=== PATIENT | female | born 2000 | race Caucasian/White ===

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

== ENCOUNTER → 2021-01-04 | Outpatient (CLI) | payer OTHER ==
[~2021-01-04] MED LIST changes: +CEFD300 PO; +PRENATAL TABLE1 EAC2 PO
== END | disposition home or self-care (01) ==
LOC: LAB SHORT 14:45 → LAB 14:45
DX: J06.9 Acute upper respiratory infection, unspecified (principal)
CPT/HCPCS: 87081

== ENCOUNTER 2021-11-26 22:37 | Emergency (ER) | payer OTHER ==
[~2021-11-26] VITALS: Ht 175.3 cm; Wt 68.0 kg
[2021-11-26 23:25] LABS: BASOPHILS ABSOLUTE AUTO 0.04 K/mm3 (0.00-0.23); BASOPHILS PERCENT AUTO 1 % (0-2); EOSINOPHILS ABSOLUTE AUTO 0.09 K/mm3 (0.00-0.68); EOSINOPHILS PERCENT AUTO 2 % (0-6); Hematocrit 40.1 % (33.0-51.0); Hemoglobin 13.5 g/dL (11.5-16.0); IMMATURE GRAN ABSOLUTE AUTO 0.01 K/mm3 (0.00-0.10); IMMATURE GRAN PERCENT AUTO 0 % (0-1); LYMPHOCYTES ABSOLUTE AUTO 2.01 K/mm3 (0.84-5.20); LYMPHOCYTES PERCENT AUTO 33 % (21-46); MONOCYTES ABSOLUTE AUTO 0.46 K/mm3 (0.16-1.47); MONOCYTES PERCENT AUTO 8 % (4-13); Mean Corpuscular HGB 29.9 pg (26.0-34.0); Mean Corpuscular HGB Conc 33.7 g/dL (31.5-36.5); Mean Corpuscular Volume 89 fL (80-100); Mean Platelet Volume 9.2 fL (9.1-12.4); NEUTROPHILS ABSOLUTE AUTO 3.49 K/mm3 (1.96-9.15); NEUTROPHILS PERCENT AUTO 57 % (41-73); Platelet Count 279 K/mm3 (150-400); RDW Coefficient Variation 12.2 % (11.7-14.2); RDW Standard Deviation 40.1 fL (35.1-46.3); Red Blood Cell Count 4.51 M/mm3 (3.80-5.20)
[2021-11-26 23:44] LABS: Albumin, Blood 3.9 g/dL (3.4-5.0); Albumin/Globulin Ratio 1.1 (0.8-1.8); Bilirubin, Total 0.2 mg/dL (0.1-1.0); Calcium, Blood 9.3 mg/dL (8.5-10.1); Creatinine, Blood 0.76 mg/dL (0.40-1.00); Globulin, Blood 3.5 g/dL (2.2-4.0); Magnesium, Blood 1.7 mg/dL (1.6-2.4); Total Protein, Blood 7.4 g/dL (6.4-8.2)
[2021-11-26 23:49] LABS: Source, Urine Clean Catch
[2021-11-26 23:58] LABS: Bilirubin, Urine Neg (Neg); Blood, Urine 1+ (Neg); Glucose Qualitative, Urine Neg (Neg); Ketones, Urine Neg (Neg); Leukocyte Esterase, Urine 3+ (Neg); Nitrite, Urine Neg (Neg); Protein, Urine Neg (Neg); Urobilinogen, Urine NORM (Normal)
[2021-11-27 00:14] LABS: Appearance, Urine Hazy (Clear); Bacteria Many /hpf; Color, Urine Yellow (P-Yellow); Red Blood Cells, Urine 0-2 /hpf (0-2); Squamous Epithelial Cells Mod /hpf (Few)
[2021-11-27 00:16] LABS: U Amphetamine Screen Not Detected; U Barbituate Screen Not Detected; U Benzodiazapine Screen Not Detected; U Buprenorphine Screen Not Detected; U Cannabinoids Screen DETECTED; U Cocaine Screen Not Detected; U Methadone Screen Not Detected; U Methamphetamine Screen Not Detected; U Opiates Screen Not Detected; U Oxycodone Screen Not Detected; U Phencyclidine Screen Not Detected; U Propoxyphene Screen Not Detected
[2021-11-27] MEDS ORDERED: LEVE500 PO (01:00)
== END 2021-11-27 01:09 | disposition home or self-care (01) ==
LOC: ER 22:37
PROVIDERS: Physician Assistant
DX: R20.2 Paresthesia of skin (principal); R10.9 Unspecified abdominal pain; Z79.899 Other long term (current) drug therapy
CPT/HCPCS: 36415; 80053; 81001; 81025; 82947; 83735; 85025; 87086; 99284

== ENCOUNTER → 2022-08-21 | Outpatient (CLI) | payer OTHER ==
[~2022-08-21] MED LIST changes: +LEVE500 PO
[2022-08-22 13:00] LABS: Candida species (DNA Probe) Negative (NEGATIVE); G. vaginalis (DNA Probe) Negative (NEGATIVE); T. vaginalis (DNA Probe) Negative (NEGATIVE)
== END | disposition home or self-care (01) ==
LOC: LAB SHORT 16:57 → LAB 16:57
PROVIDERS: Obstetrics & Gynecology
DX: N89.8 Other specified noninflammatory disorders of vagina (principal)
CPT/HCPCS: 87480; 87510; 87660

== ENCOUNTER → 2022-10-01 | Outpatient (CLI) | payer OTHER ==
[2022-10-01 13:20] LABS: Source, Urine Clean Catch
[2022-10-01 14:24] LABS: Appearance, Urine Clear (Clear); Bilirubin, Urine Neg (Neg); Blood, Urine Neg (Neg); Color, Urine Yellow (P-Yellow); Glucose Qualitative, Urine Neg (Neg); Ketones, Urine Neg (Neg); Leukocyte Esterase, Urine Neg (Neg); Nitrite, Urine Neg (Neg); Protein, Urine Neg (Neg); Urobilinogen, Urine NORM (Normal)
== END | disposition home or self-care (01) ==
LOC: LAB SHORT 13:14 → LAB 13:14
PROVIDERS: Obstetrics & Gynecology
DX: R30.0 Dysuria (principal); R10.2 Pelvic and perineal pain
CPT/HCPCS: 81003

== ENCOUNTER 2022-10-11 21:00 | Emergency (ER) | payer OTHER ==
[~2022-10-11] VITALS: Ht 175.3 cm; Wt 68.5 kg
[2022-10-11 21:34] LABS: BASOPHILS ABSOLUTE AUTO 0.05 K/mm3 (0.00-0.23); BASOPHILS PERCENT AUTO 1 % (0-2); EOSINOPHILS ABSOLUTE AUTO 0.11 K/mm3 (0.00-0.68); EOSINOPHILS PERCENT AUTO 2 % (0-6); Hematocrit 39.2 % (33.0-51.0); IMMATURE GRAN ABSOLUTE AUTO 0.02 K/mm3 (0.00-0.10); IMMATURE GRAN PERCENT AUTO 0 % (0-1); LYMPHOCYTES ABSOLUTE AUTO 2.31 K/mm3 (0.84-5.20); LYMPHOCYTES PERCENT AUTO 35 % (21-46); MONOCYTES PERCENT AUTO 8 % (4-13); Mean Corpuscular HGB 29.9 pg (26.0-34.0); Mean Corpuscular HGB Conc 33.2 g/dL (31.5-36.5); Mean Corpuscular Volume 90 fL (80-100); Mean Platelet Volume 9.4 fL (9.1-12.4); NEUTROPHILS ABSOLUTE AUTO 3.54 K/mm3 (1.96-9.15); NEUTROPHILS PERCENT AUTO 54 % (41-73); Platelet Count 284 K/mm3 (150-400); RDW Standard Deviation 42.9 fL (35.1-46.3); Red Blood Cell Count 4.35 M/mm3 (3.80-5.20); White Blood Cell Count 6.53 K/mm3 (4.00-11.30)
[2022-10-11 21:54] LABS: Albumin, Blood 3.9 g/dL (3.4-5.0); Albumin/Globulin Ratio 1.2 (0.8-1.8); Bilirubin, Total 0.3 mg/dL (0.1-1.0); Bun/Creatinine Ratio 15.3 (12.0-20.0); Calcium, Blood 9.5 mg/dL (8.5-10.1); Creatinine, Blood 0.72 mg/dL (0.40-1.00); Globulin, Blood 3.3 g/dL (2.2-4.0); Potassium, Blood 3.8 mmol/L (3.5-5.5); Total Protein, Blood 7.2 g/dL (6.4-8.2)
[2022-10-11 23:00] LABS: Source, Urine Clean Catch
[2022-10-11 23:28] LABS: Appearance, Urine Clear (Clear); Bilirubin, Urine Neg (Neg); Blood, Urine Neg (Neg); Color, Urine Yellow (P-Yellow); Glucose Qualitative, Urine Neg (Neg); Ketones, Urine Neg (Neg); Leukocyte Esterase, Urine Neg (Neg); Nitrite, Urine Neg (Neg); Protein, Urine Neg (Neg); Urobilinogen, Urine NORM (Normal)
[2022-10-12] MEDS ORDERED: LEVE500 PO (00:20)
[2022-10-12 00:30] VITALS: BP 107/66
== END 2022-10-12 00:28 | disposition home or self-care (01) ==
LOC: ER 21:00
PROVIDERS: Student in an Organized Health Care Education/Training Program
DX: R56.9 Unspecified convulsions (principal); Z79.899 Other long term (current) drug therapy
CPT/HCPCS: 80053; 81003; 85025; 99284

== ENCOUNTER 2022-12-24 21:13 | Emergency (ER) | payer OTHER ==
[~2022-12-24] VITALS: Ht 175.3 cm; Wt 70.3 kg
[2022-12-24 22:21] LABS: Source, Urine Clean Catch
[2022-12-24 22:25] LABS: Appearance, Urine Cloudy (Clear); Bilirubin, Urine Neg (Neg); Blood, Urine 5+ (Neg); Color, Urine Brown (P-Yellow); Glucose Qualitative, Urine Neg (Neg); Ketones, Urine Neg (Neg); Leukocyte Esterase, Urine 3+ (Neg); Nitrite, Urine Neg (Neg); Protein, Urine 2+ (Neg); Urobilinogen, Urine 1+ (Normal)
[2022-12-24 22:56] LABS: Bacteria Mod /hpf; Red Blood Cells, Urine TNTC /hpf (0-2); Squamous Epithelial Cells Few /hpf (Few)
[2022-12-25] MEDS ORDERED: Pyridium100 MG PO (00:14)
[2022-12-25 00:27] VITALS: BP 108/66
== END 2022-12-25 00:28 | disposition home or self-care (01) ==
LOC: ER 21:13
PROVIDERS: Student in an Organized Health Care Education/Training Program
DX: N39.0 Urinary tract infection, site not specified (principal); R56.9 Unspecified convulsions; Z79.899 Other long term (current) drug therapy
CPT/HCPCS: 81001; 87086; 99283; A9270